=== PATIENT | female | born 1980 | race Caucasian/White ===

== ENCOUNTER 2021-09-08 15:21 | Emergency (ER) | payer OTHER, SELFPAY ==
[2021-09-08 15:45] VITALS: BP 133/89; PULSE 86; RESP 18; TEMP 36.4; O2SAT 100
--- NOTE | 2021-09-08 16:10 | ED.URI ---
HPI - URI/Sore Throat General Chief Complaint: Upper Respiratory Infection Stated Complaint: pressure in head Time Seen by Provider: 09/08/21 16:10 Source: patient Mode of arrival: ambulatory Limitations: no limitations History of Present Illness HPI Narrative: Maria Del Carmen Shea is a 41 yo female with a PMH of diabetes who comes to [facility] with complaints of on and off headache and sinus pressure for the past 6 days she states she felt fine until yesterday and this morning she woke up feeling like head was going to explode . States that she has not been taking her medication and wants medication that will not make her blood sugar go up Related Data Home Medications Medication Instructions Recorded Confirmed metformin 1,000 mg BID 09/08/21 09/08/21 Allergies Allergy/AdvReac Type Severity Reaction Status Date / Time No Known Allergies Allergy Verified 09/08/21 16:00 Review of Systems Review of Systems: CONSTITUTIONAL: Denies fever, chills, sweats. EYES: Denies visual changes, redness, discharge. ENT:has rhinorrhea, has congestion, has sore throat, otalgia. CARDIOVASCULAR: Denies chest pain, palpitations, edema. RESPIRATORY: Denies dyspnea, wheezing, occasional cough GASTROINTESTINAL: Denies abdominal pain, nausea, vomiting, diarrhea. GENITOURINARY: Denies dysuria, hematuria, abnormal discharge SKIN: Denies rash or itching. NEUROLOGIC: Denies numbness, or focal weakness. PSYCHIATRIC: Denies anxiety or depression. FOR[facility], [facility] Past Medical History Medical History (Updated 09/08/21 @ 16:21 by Moni Teran CNP) Type 2 diabetes mellitus Social History Social History (Updated 09/08/21 @ 16:17 by Moni Teran CNP) Smoking status: Former smoker Smoking end date: 08/27/04 Alcohol intake: current Comments At time of signature, I agree with nursing past medical, surgical, social and family history. There is no relevant family history pertinent to the presenting complaint. Exam Narrative: GENERAL: This is a well-nourished, well-developed patient, in mild distress. HEAD: normocephalic, atraumatic. EYES: Sclera clear/white. Vision is grossly intact. EARS: External ears normal, auditory canals erythema and without drainage, TMs normal without perforation. Hearing grossly intact. NOSE: External nose normal without nasal discharge, nares with redness, no rhinorrhea. THROAT: Mucous membranes moist, posterior pharynx erythema with clear drainage NECK: Neck supple, non-tender CARDIOVASCULAR: Regular rate and rhythm without murmurs, gallops, or rubs. RESPIRATORY: Clear to auscultation. Breath sounds equal bilaterally. No wheezes, rales, or rhonchi. GASTROINTESTINAL: Not done, SKIN: warm, intact with no suspicious lesions or rash, good texture and turgor. NEURO: awake, alert, and oriented to person, place and time. There were no obvious focal neurologic abnormalities. Steady gait EXTREMITIES: Normal range of motion. BACK: Nontender without deformity Course Course Emergency Course: Patient comes with headache congestion on and off cough symptoms have been intermittent throughout the week, feels very congested in her head and has a scratchy throat. COVID PCR done Started on Mucinex, Flonase, Zyrtec Tessalon Perles for cough Patient not to return to work until results of COVID PCR received Level of Care: Express Care Visit Vital Signs Vital signs: Vital Signs Temperature 97.6 F 09/08/21 15:45 Pulse Rate 86 09/08/21 15:45 Respiratory Rate 18 09/08/21 15:45 Blood Pressure 133/89 09/08/21 15:45 Pulse Oximetry 100 09/08/21 15:45 Temperature 97.6 F 09/08/21 15:45 Pulse Rate 86 09/08/21 15:45 Respiratory Rate 18 09/08/21 15:45 Blood Pressure 133/89 09/08/21 15:45 Pulse Oximetry 100 09/08/21 15:45 MDM - URI/Sore Throat Differential Diagnosis Differential diagnosis: Likely upper respiratory infection, sinusitis, viral infection, influenza, pharyngitis and other Critica
[2021-09-10 18:18] LABS: SARS-CoV-2 RNA PCR Positive
== END 2021-09-08 16:30 | disposition home or self-care (01) ==
PROVIDERS: Emergency Provider Nurse Practitioner; PCP Family Medicine
DX: U07.1 COVID-19 (principal); E11.9 Type 2 diabetes mellitus without complications; Z87.891 Personal history of nicotine dependence; Z79.84 Long term (current) use of oral hypoglycemic drugs
CPT/HCPCS: 99203; C9803; G0463; U0003; U0005